=== PATIENT | male | born 1940 | race Caucasian/White ===

== ENCOUNTER 2016-11-28 16:40 | Emergency (ER) | payer OTHER, BC ==
[2016-11-28 16:45] VITALS: BMI 21.4
--- NOTE | 2016-11-28 17:50 | PDOC ---
History of Present Illness <Keith Abrams - Last Filed: 11/28/16 18:53> - General History Source: Patient, Family (Daughter) Exam Limitations: No Limitations - History of Present Illness Initial Comments: 11/28/16 18:06 The patient is a 76 year old male, with a significant past medical history of atrial fibrillation (on Coumadin), diabetes and colon CA (in 1979), who presents to the emergency department with one episode of rectal bleeding this morning. Yesterday, the patient states that he took some Pepto Bismol around 4- 5PM due to some abdominal discomfort. This morning, the patient reports one episode of dark black colored diarrhea. The patient subsequently called his PCP , who advised he visit the ED for further evaluation. The patient reports that he has not eaten anything yet today. The patient denies chest pain or shortness of breath. Currently in the ED, the patient denies fever, chills, nausea, vomiting or abdominal pain. The patients daughter is at the bedside. Allergies: Penicillins, Shellfish derived. Past Surgical History: Resection. Social History: Non smoker. Denies alcohol or drug use. PCP: Dr. Zoila Graves <Evy Godinez - Last Filed: 11/28/16 18:57> - General Chief Complaint: Rectal Bleed Stated Complaint: PCP SENT/RECTAL BLEED Time Seen by Provider: 11/28/16 17:35 Past History - Past Medical History Cancer: Yes (COLON AT AGE OF 39) Diabetes: Yes - Surgical History Abdominal Surgery: Yes (RESECTION) - Psycho/Social/Smoking Cessation Hx Suicidal Ideation: No Smoking History: Never smoked Hx Alcohol Use: No Drug/Substance Use Hx: No <Keith Abrams - Last Filed: 11/28/16 18:53> <Evy Godinez - Last Filed: 11/28/16 18:57> - Past Medical History Allergies/Adverse Reactions: Allergies Allergy/AdvReac Type Severity Reaction Status Date / Time Penicillins Allergy Verified 11/28/16 16:46 shellfish derived Allergy Verified 11/28/16 16:46 Review of Systems - Review of Systems Able to Perform ROS?: Yes Comments:: 11/28/16 18:00 CONSTITUTIONAL: No fever, no chills, no fatigue EYES: No visual changes ENT: No ear pain, no sore throat CARDIOVASCULAR: No chest pain, no palpitations RESPIRATORY: No cough, no SOB GI: +Rectal bleeding, diarrhea. No abdominal pain, no nausea, no vomiting, no constipation GENITOURINARY: No dysuria, no frequency, no hematuria MUSKULOSKELETAL: No back pain, no joint pain, no myalgias SKIN: No rash NEURO: No headache <Evy Godinez - Last Filed: 11/28/16 18:57> *Physical Exam - Vital Signs Last Vital Signs Temp Pulse Resp BP Pulse Ox 65 18 188/88 99 11/28/16 16:41 11/28/16 16:41 11/28/16 16:41 11/28/16 16:41 <Keith Abrams - Last Filed: 11/28/16 18:53> - Vital Signs Last Vital Signs Temp Pulse Resp BP Pulse Ox 65 18 188/88 99 11/28/16 16:41 11/28/16 16:41 11/28/16 16:41 11/28/16 16:41 - Physical Exam Comments: 11/28/16 18:19 CONSTITUTIONAL: Well-appearing; well-nourished; in no apparent distress. HEAD: Normocephalic; atraumatic. EYES: PERRL; EOM intact. ENMT: External appears normal; normal oropharynx. NECK: Supple; non-tender; no cervical lymphadenopathy. CARD: Normal S1, S2; no murmurs, rubs, or gallops. RESP: Normal chest excursion with respiration; breath sounds clear and equal bilaterally; no wheezes, rhonchi, or rales. ABD: Soft, non-distended; non-tender; no palpable organomegaly, no palpable hernias. EXT: Normal ROM in all four extremities; non-tender to palpation; distal pulses intact. SKIN: Warm, dry, no rash. NEURO: No focal neurological deficiencies. RECTAL EXAM: No external lesions. Dark black stool visible. <Evy Godinez - Last Filed: 11/28/16 18:57> ED Treatment Course - LABORATORY CBC & Chemistry Diagram: 11/28/16 17:44 11/28/16 17:44 <Keith Abrams - Last Filed: 11/28/16 18:53> - LABORATORY CBC & Chemistry Diagram: 11/28/16 17:44 11/28/16 17:44 <Evy Godinez - Last Filed: 11/28/16 18:57> Medical Decision Making - Medical Decision Making 11/28/16 18:53 Patient is a well-appearing 76-year-old male with history of diabetes and paroxysmal A. fib on Coumadin who presents with an episode of diarrhea with black tarry stools after taking several doses of Pepto-Bismol. In the ER, patient is awake and alert, well-appearing, with normal stable vital signs. CBC reveals hematocrit of 45. Patient is noted to be stool guaiac negative. At this time, I believe patient's not suffering a gastrointestinal hemorrhage and can be discharged with follow-up. <Keith Abrams - Last Filed: 11/28/16 18:53> - Medical Decision Making 11/28/16 18:[address] Graves at 18:50. Referred to answering service, awaiting callback. Dr. Sequeira returned call at 18:56, case discussed. <Evy Godinez - Last Filed: 11/28/16 18:57> *DC/Admit/Observation/Transfer - Attestations Physician Attestion: 11/28/16 18:53 The documentation was prepared by the scribe under my direct supervision. I have reviewed the documentation which correctly represents the findings, medical decision-making and critical action taken by me. <Keith Abrams - Last Filed: 11/28/16 18:53> - Attestations Scribe Attestion: 11/28/16 17:51 Documentation prepared by Evy Godinez, acting as medical educator for Keith Abrams MD. <Evy Godinez - Last Filed: 11/28/16 18:57> Diagnosis at time of Disposition: Diarrhea Qualifiers: Diarrhea type: unspecified type Qualified Code(s): R19.7 - Diarrhea, unspecified - Discharge Dispostion Disposition: HOME Condition at time of disposition: Stable - Referrals Referrals: Zoila Graves MD [Primary Care Provider] - - Patient Instructions Printed Discharge Instructions: DI for Diarrhea and Traveler's Diarrhea -- Adult
[2016-11-28 18:12] LABS: BASOPHIL 0.4 % (0-2.0); EOSINOPHIL 0.9 % (0-4.5); MCH 28.5 pg (25.7-33.7); MCHC 32.8 g/dl (32.0-35.9); MEAN PLT VOLUME 8.4 fl (7.5-11.1); NEUTROPHILS 73.6 % (42.8-82.8); PLATELET COUNT 185 K/MM3 (134-434); RDW 14.9 % (11.9-15.9); WHITE BLOOD COUNT 8.4 K/mm3 (4.0-10.0)
[2016-11-28 18:24] LABS: INR 2.08 (0.82-1.09); PROTHROMBIN TIME (PATIENT) 23.2 SEC (9.98-11.88)
[2016-11-28 18:37] LABS: ALBUMIN 4.3 g/dl (3.4-5.0); ANION GAP 14 (8-16); BILIRUBIN,TOTAL 0.9 mg/dL (0.2-1.0); CALCIUM 9.2 mg/dL (8.5-10.1); CO2 23 mmol/L (21-32); COCKROFT - GAULT 67.91; CREATININE 0.9 mg/dL (0.7-1.3); GLUCOSE,RANDOM 76 mg/dL (74-106); SGOT/AST 34 U/L (15-37); SGPT/ALT 37 U/L (12-78); TOT PROT 8.2 g/dl (6.4-8.2)
[2016-11-28 18:38] LABS: ALK PHOS 106 U/L (45-117)
[2016-11-28 19:12] VITALS: BP 170/80; PULSE 70
== END 2016-11-28 19:12 | disposition home or self-care (01) ==
LOC: JER 16:40
DX: R19.7 Diarrhea, unspecified (principal); I48.0 Paroxysmal atrial fibrillation; Z79.01 Long term (current) use of anticoagulants; E11.9 Type 2 diabetes mellitus without complications; Z85.038 Personal history of other malignant neoplasm of large intestine
CPT/HCPCS: 36415; 80053; 82272; 85025; 85610; 86850; 86900; 86901; 99282-25